=== PATIENT | female | born 1950 | race Hispanic/Latino ===

== ENCOUNTER 2017-10-10 10:25 | Day surgery (SDC) | payer MEDICARE ==
[2017-10-10 11:00] VITALS: BMI 38.4
[2017-10-10 11:10] VITALS: RESP 18
[2017-10-10] MEDS ORDERED: Bupivacaine 0.5% Inj(30mL) ONE (12:24)
[2017-10-10] MEDS ORDERED: Lidocaine 1% Inj (20ml) ONE (12:24)
[2017-10-10 12:52] VITALS: O2SAT 96
--- NOTE | 2017-10-10 13:39 | PCM.SURG1 ---
Surgeon's Initial Post Op Note - Surgeon's Notes Surgeon: Dr. Carter Staff Electrical Engineer: Lisandra Mckeon PGY2 Type of Anesthesia: Local Pre-Operative Diagnosis: R breast lesion Operative Findings: R breast lesion [id number] Post-Operative Diagnosis: Same Operation Performed: R breast biopsy : truecut Specimen/Specimens Removed: Truecut R breast biopsy x5 Estimated Blood Loss: EBL {In ML}: 5 Blood Products Given: N/A Drains Used: No Drains Post-Op Condition: Good Date of Surgery/Procedure: 10/10/17 Time of Surgery/Procedure: 13:39
[2017-10-10] MEDS ORDERED: Oxycodone/Acetaminophen 5/325 mg Tab PO PRN (13:40)
[2017-10-10 14:27] VITALS: BP 133/76; PULSE 68; TEMP 98
--- NOTE | 2017-10-24 00:32 | OP ---
PROCEDURE DATE: 10/10/2017 SURGEON: Dr. Barnes. DESCRIPTION OF PROCEDURE: In the operating room, the patient was identified by name, name of the procedure, laterality, and my roc. The breast was prepped with chlorhexidine and waiting for 3 minutes, it was then draped. After the successful timeout, the area was examined. Small incision was made with an 11-blade and TruCut needle. Three passes were used to biopsy this palpable mass. This was sent to the lab, not for frozen section. The incision was closed with a Vicryl and a pressure dressing applied. Patient was taken to the recovery room in good condition after the sponge and needle count was declared correct. Duncan Barnes MD
== END 2017-10-10 14:31 | disposition home or self-care (01) ==
LOC: OPSURG 10:25
PROVIDERS: ATTEND Surgery
DX: N61.0 Mastitis without abscess (principal); N64.4 Mastodynia; N63.0 Unspecified lump in unspecified breast

== ENCOUNTER → 2018-09-15 | Outpatient (CLI) | payer MEDICARE | LOC: RAD 09:30 ==

== ENCOUNTER 2018-10-09 11:00 | Outpatient (CLI) | payer MEDICARE | END 2018-10-09 11:01 | disposition home or self-care (01) | LOC: RAD 11:00 ==

== ENCOUNTER 2018-10-24 09:19 | Outpatient (CLI) | payer MEDICARE | END 2018-10-24 09:20 | disposition home or self-care (01) | LOC: RAD 09:19 ==